=== PATIENT | male | born 1930 ===

== ENCOUNTER → 2017-02-16 | Outpatient (CLI) | payer MEDICARE, BC ==
--- NOTE | 2017-02-16 13:59 | RADRPT ---
PROCEDURE: XR pelvis/right hip. CLINICAL INDICATION: Hip pain TECHNIQUE: AP pelvis/lateral right hip view performed. COMPARISON: No prior studies are available for comparison. FINDINGS: There is a right total hip replacement. There is no evidence of loosening of the prosthesis. No hard reeves failure is identified. Skin sydnee are in place. There is mild left hip osteoarthrosis. This is associated with joint space narrowing, subchondral sc lerosis and osteophytosis. There is normal osseous mineralization. No fractures or osseous lesions are identified. The soft tissues are unremarkable. IMPRESSION: Right total hip replacement. Mild left hip osteoarthrosis. RPTAT: HGDB .Jose Davenport MD, MD Date Time Electronically viewed and signed by .Jose Davenport MD, on 02/16/2017 13:59 .B/
--- NOTE | 2017-02-16 18:34 | HKNOTE ---
DATE OF SERVICE: 02/16/2017 INTERVAL HISTORY: The patient presents today for his first postoperative evaluation. He is 11 days status post right anterior total hip arthroplasty after sustaining a mechanical fall. The patient sustained a right femoral neck fracture and had noted osteoarthritis of the right hip and underwent a right anterior BHARTI on 02/05/2017. He is doing satisfactory overall. Apparently he was at a rehab facility but he is now home and is planning to arrange home health. He denies any fevers or chills. He denies any significant pain. He is taking aspirin twice daily for DVT prophylaxis. He describes pain when he tries to extend his hip fully. He presents today for his first postoperative evaluation. PHYSICAL EXAMINATION: On exam today, he is alert, and oriented x4 and in no acute distress. He is walking with a front-wheeled walker. Exam of the incision demonstrates sydnee to be in place. It is clean, dry and intact. There is some mild dermatitis from the adhesive dressing but no erythema or warmth noted. There is no pus or drainage noted. He does have pain with passive range of motion. He does have his hip in a guarded position for comfort. Homans sign is negative. Compartments are soft. He is neurovascularly intact distally. IMAGING: X-rays of the right hip were obtained today and reviewed by me. They demonstrate good anatomic alignment with no fracture or dislocation identified. ASSESSMENT: Eleven days status post right anterior total hip arthroplasty after sustaining a right femoral neck fracture. PLAN: The sydnee were removed today and Steri-Strips were applied. The patient was seen and evaluated by Dr. Rizzo as well in the office today. He is to continue aspirin twice daily for 6 weeks for DVT prophylaxis. Additionally, we will go ahead and arrange [facility] home health for the patient since he is now home. If he has any concerns, he will call the office. Otherwise, we will see him back in 4 weeks for a repeat evaluation. Dictated By: CHINMAY MORRIS for ALECIA CEVALLOS/KARTIK Conf#: [id number] DID#: [id number]
== END | disposition home or self-care (01) ==
LOC: HKI 13:24
PROVIDERS: ATTEND Orthopaedic Surgery
DX: Z47.1 Aftercare following joint replacement surgery (principal); Z96.641 Presence of right artificial hip joint
CPT/HCPCS: 73502

== ENCOUNTER → 2017-03-16 | Outpatient (CLI) | payer MEDICARE, BC ==
--- NOTE | 2017-03-16 12:19 | RADRPT ---
PROCEDURE: XR pelvis/right hip. CLINICAL INDICATION: Hip pain TECHNIQUE: AP pelvis/lateral right hip view available for review. COMPARISON: 02/16/2017 FINDINGS: There is a right total hip replacement. There is no evidence of loosening of the prosthesis. No hard reeves failure is identified. Skin sydnee are in place. There is mild left hip osteoarthrosis. This is associated with joint space narrowing, subchondral sc lerosis and osteophytosis. There is normal osseous mineralization. No fractures or osseous lesions a re identified. The soft tissues are unremarkable. IMPRESSION: Right total hip replacement. Mild left hip osteoarthrosis. RPTAT: HGDB .Jose Davenport MD, MD Date Time Electronically viewed and signed by .Jose Davenport MD, on 03/16/2017 12:18 .B/
== END | disposition home or self-care (01) ==
LOC: HKI 10:42
PROVIDERS: ATTEND Orthopaedic Surgery
DX: Z09 Encounter for follow-up examination after completed treatment for conditions other than malignant neoplasm (principal); Z96.641 Presence of right artificial hip joint
CPT/HCPCS: 73502

== ENCOUNTER → 2017-04-11 | Outpatient (CLI) | payer MEDICARE, BC ==
--- NOTE | 2017-04-11 10:58 | RADRPT ---
PROCEDURE: XR pelvis/right hip. CLINICAL INDICATION: Hip pain TECHNIQUE: AP pelvis/lateral right hip view performed. COMPARISON: 03/16/2017 FINDINGS: There is a right total hip replacement. There is no evidence of loosening of the prosthesis. No hard reeves failure is identified. 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 There is mild to moderate left hip osteoarthrosis. This is associated with joint space narrowing, gresham bchondral sclerosis and osteophytosis. There is normal osseous mineralization. No fractures or oss eous lesions are identified. The soft tissues are unremarkable. IMPRESSION: Right total hip replacement. Mild to moderate left hip osteoarthrosis. RPTAT: HGDB .Jose Davenport MD, Date Time Electronically viewed and signed by .Jose Davenport MD, on 04/11/2017 10:58 .B/
== END | disposition home or self-care (01) ==
LOC: HKI 08:48
PROVIDERS: ATTEND Orthopaedic Surgery
DX: Z47.1 Aftercare following joint replacement surgery (principal); M16.11 Unilateral primary osteoarthritis, right hip; Z96.641 Presence of right artificial hip joint
CPT/HCPCS: 73502; G0463

== ENCOUNTER → 2017-05-23 | Outpatient (CLI) | payer MEDICARE, BC ==
--- NOTE | 2017-05-23 15:34 | RADRPT ---
PROCEDURE: XR Right hip and pelvis. CLINICAL INDICATION: Right hip pain. Pelvic pain. Postop. TECHNIQUE: Three views. Frontal pelvis. Frontal and lateral right hip. COMPARISON: 04/11/2017. FINDINGS: There is a right total hip arthroplasty. There is no evidence of loosening of the prosthesis. No conner dware failure is identified. There is extensive heterotrophic bone formation surrounding the right h ip, unchanged. There is mild to moderate left hip osteoarthrosis. This is associated with joint space narrowing, gresham bchondral sclerosis and osteophytosis. There is normal osseous mineralization. No fractures or osseo us lesions are identified. The soft tissues are unremarkable. IMPRESSION: 1. Satisfactory postoperative appearance of the right hip. 2. Mild to moderate left osteoarthrosis. RPTAT: QQ .Christian Brandon MD, Date Time Electronically viewed and signed by .Christian Brandon MD, MD on 05/23/2017 15:34 .R/
== END | disposition home or self-care (01) ==
LOC: HKI 10:24
PROVIDERS: ATTEND Orthopaedic Surgery
DX: Z47.1 Aftercare following joint replacement surgery (principal); Z96.641 Presence of right artificial hip joint; T84.84XA Pain due to internal orthopedic prosthetic devices, implants and grafts, initial encounter; M25.551 Pain in right hip; Y83.8 Other surgical procedures as the cause of abnormal reaction of the patient, or of later complication, without mention of misadventure at the time of the procedure
CPT/HCPCS: 73502; G0463